=== PATIENT | female | born 1950 | race Caucasian/White ===

== ENCOUNTER → 2016-09-21 | Outpatient (CLI) | payer MEDICARE ==
--- NOTE | 2016-09-22 08:37 | MM ---
Reason for exam: screening (asymptomatic). Last mammogram was performed 1 year and 1 month ago. History: Patient is postmenopausal. Family history of breast cancer in maternal aunt at age 75 and breast cancer in mother at age 75. Took hormonal contraceptives for 2 years. Took estrogen for 9 years beginning at age 45. Physical Findings: A clinical breast exam by your physician is recommended on an annual basis and results should be correlated with mammographic findings. MG 3D Screening Mammo W/Cad Bilateral CC and MLO view(s) were taken. Prior study comparison: August 10, 2015, bilateral MG screening mammo w CAD. June 26, 2014, bilateral MG screening mammo w CAD. March 27, 2013, right diagnostic mammogram w/CAD. There are scattered fibroglandular densities. Finding: There are typically benign vascular, round calcifications in both breasts. There are tiny chronic nodularities bilaterally. There is no discrete abnormality. ASSESSMENT: Benign, BI-RAD 2 RECOMMENDATION: Routine screening mammogram of both breasts in 1 year.
== END | disposition home or self-care (01) ==
LOC: RADMAMWWP 08:17
PROVIDERS: ATTEND Internal Medicine
DX: Z12.31 Encounter for screening mammogram for malignant neoplasm of breast (principal)
CPT/HCPCS: 77063; G0202

== ENCOUNTER → 2016-12-12 | Outpatient (CLI) | payer MEDICARE ==
[2016-12-12 09:16] LABS: CH 30.9; CHCM 35.4; HCT 41.5 % (34.0-46.0); HGB 14.4 gm/dL (11.4-16.0); MCH 30.4 pg (25.0-35.0); MCHC 34.7 g/dL (31.0-37.0); MCV 87.6 fL (80.0-100.0); Mean Platelet Volume 9.5; RBC 4.74 m/uL (3.80-5.40); RDW 12.9 % (11.5-15.5); WBC 5.4 k/uL (3.8-10.6)
[2016-12-12 09:41] LABS: Anion Gap 9 mmol/L; Blood Urea Nitrogen 18 mg/dL (7-17); Carbon Dioxide 28 mmol/L (22-30); Chloride 105 mmol/L (98-107); Non-African American GFR(MDRD) >60 (>60 ml/min/1.73 sqM); Potassium 4.3 mmol/L (3.5-5.1); Sodium 142 mmol/L (137-145)
== END | disposition home or self-care (01) ==
LOC: LABPAT 08:51
PROVIDERS: ATTEND Internal Medicine Interventional Cardiology
DX: Z01.812 Encounter for preprocedural laboratory examination (principal); I25.10 Atherosclerotic heart disease of native coronary artery without angina pectoris
CPT/HCPCS: 80051; 82565; 84520; 85027

== ENCOUNTER → 2016-12-15 | Day surgery (SDC) | payer MEDICARE ==
[2016-12-12 14:53] VITALS: BMI 42.5
[~2016-12-15] MED LIST: ALPRAZolam 0.25 MG TAB PO PRN; ALPRAZolam 0.5 MG TAB PO PRN; ASPIRIN 325 MG TAB PO STA; ATORVASTATIN 80 MG TAB PO STA; IOHEXOL 350 MG/ML 125ML BOTTLE INJ ONE; LIDOCAINE 2% INJ 20 MG/ML (20 ML MDV) ONE; MIDAZOLAM 2 MG/2 ML VIAL ONE; NITROGLYCERIN SL TABS 0.4 MG TAB SUBLINGUAL PRN; RX INFO: IV CONTRAST WAS GIVEN 1 EACH MISC MISCELLANE PRN; SODIUM CHLORIDE 0.9% 1,000 ML IV SCH; SODIUM CHLORIDE 0.9% 1,000 ML in EMPTY BAG 1 BAG IV ONE; VERAPAMIL 2.5 MG/ML 2 ML AMP ONE
[2016-12-15 07:06] VITALS: RESP 18
[2016-12-15] MEDS: MIDAZOLAM 2 MG/2 ML VIAL IV ONE ×2 (07:48→07:55)
[2016-12-15] MEDS: LIDOCAINE 2% INJ 20 MG/ML SQ ONE ×2 (07:50→08:08)
[2016-12-15 08:56] VITALS: TEMP 98.2
[2016-12-15 14:57] VITALS: BP 101/56; PULSE 58
--- NOTE | 2016-12-15 18:29 | CC ---
DATE OF SERVICE: 12/15/2016 PERFORMING PHYSICIAN: Femi Vega M.D., psychological science professor. PROCEDURES PERFORMED: 1. Selective right and left coronary angiogram. 2. Left heart catheterization. 3. Left ventriculography. INDICATION: This is a pleasant 66-year-old female patient who was experiencing chest discomfort consistent with angina. She has multiple risk factors for CAD. The decision was made for heart catheterization in view of the classical nature of her symptoms. APPROACH: Right common femoral artery. COMPLICATIONS: None. Level of sedation was moderate with sedation length of 37 minutes. PROCEDURE DESCRIPTION: After obtaining informed consent, the patient was brought to the cardiac dental laboratory technician apprentice. Initially I tried to engage the right radial artery, but I was unable. Then I decided to pursue an approach from the right groin. Subsequently the right common femoral artery was cannulated using micropuncture technique. The micropuncture wire passed easily. Then I placed a 6 German sheath in the right common femoral artery. After that I did selective right and left coronary angiogram using 6 German, JR4 and JL4 catheters. Then I did left heart catheterization and left ventriculogram using a 6 German pigtail catheter. The procedure was completed without any complication. SELECTIVE CORONARY ANGIOGRAM: 1. The right coronary artery is a large-caliber vessel. It is a dominant vessel. The right coronary artery in the proximal portion appeared to be angiographically normal. In the mid portion right after the bifurcation of the acute marginal branch it has an eccentric lesion that seems to be in the range of 30%. The RCA distally is angiographically normal. It bifurcates into PDA and PLV branches; both are angiographically normal. 2. The left main is angiographically normal. It bifurcates into the left circumflex and left anterior descending artery. 3. The left circumflex is a large-caliber vessel. It is a non-dominant vessel. The proximal left circumflex is angiographically normal and gives rise to a small obtuse marginal branch. The mid left circumflex is normal. The left circumflex distally is normal and gives rise to another obtuse marginal branch before it continues as a small-caliber vessel in the AV groove. The second OM is angiographically normal. 4. LAD. The proximal LAD is angiographically normal. The mid LAD is normal and gives rise to a medium-sized diagonal branch which seems to be angiographically normal. The LAD is tortuous but normal distally. HEMODYNAMICS: The left ventricular end-diastolic pressure was 8 mmHg, and no gradient was identified across the aortic valve. Left ventriculography was performed in the MOCK projection and using a power injection. The left ventricular systolic function is normal with an ejection fraction of 60% and normal wall motion. CONCLUSION: 1. Mild non-obstructive coronary artery disease involving the mid RCA in the range of 30%. 2. Normal left circumflex and left anterior descending artery. 3. Normal left main coronary artery. 4. Normal left ventricular systolic function. POST-PROCEDURE MANAGEMENT: 1. Maximize medical treatment. 2. Follow up with the patient.
--- NOTE | 2016-12-15 18:31 | LTR ---
December 15, 2016 RE: Luis Manuel, Yumiko M Dear Petrona, Ms. Yumiko Issa underwent a heart catheterization that showed mild non-obstructive coronary artery disease involving the right coronary artery. The left anterior descending coronary artery and left circumflex coronary artery are angiographically normal. Maximized medical treatment is recommended at this point with aspirin as well as a statin. I want to thank you for allowing me to participate in her care. Please do not hesitate to call if you have any question or concern. Sincerely, ADRIANA CARL MD
== END ==
LOC: CATHCVL 06:24
PROVIDERS: ATTEND Internal Medicine Interventional Cardiology
DX: I25.10 Atherosclerotic heart disease of native coronary artery without angina pectoris (principal); I10 Essential (primary) hypertension; E78.5 Hyperlipidemia, unspecified; Z82.49 Family history of ischemic heart disease and other diseases of the circulatory system; E66.9 Obesity, unspecified; Z68.41 Body mass index [BMI] 40.0-44.9, adult; Z88.0 Allergy status to penicillin; Z79.82 Long term (current) use of aspirin; Z79.899 Other long term (current) drug therapy
CPT/HCPCS: 93458; 99152; 99153; C1760; C1769 ×3; C1894; J2001; J2250; Q9967

== ENCOUNTER → 2016-12-20 | Outpatient (CLI) | payer MEDICARE | END | disposition home or self-care (01) | LOC: LABWHC1 08:35 | PROVIDERS: ATTEND Internal Medicine Endocrinology, Diabetes & Metabolism | DX: E05.90 Thyrotoxicosis, unspecified without thyrotoxic crisis or storm (principal) | CPT/HCPCS: 36415; 84439; 84443 ==

== ENCOUNTER → 2017-04-03 | Outpatient (CLI) | payer MEDICARE | END | disposition home or self-care (01) | LOC: LABWHC1 10:35 | PROVIDERS: ATTEND Internal Medicine Endocrinology, Diabetes & Metabolism | DX: E05.90 Thyrotoxicosis, unspecified without thyrotoxic crisis or storm (principal) | CPT/HCPCS: 36415; 84439; 84443; 84480 ==

== ENCOUNTER → 2018-01-03 | Outpatient (CLI) | payer MEDICARE ==
[2018-01-03 12:26] LABS: Basophils % (A) 0 %; Eosinophils # (A) 0.3 k/uL (0-0.7); Eosinophils % (A) 8 %; HCT 41.2 % (34.0-46.0); HGB 14.2 gm/dL (11.4-16.0); Lymphocytes # (A) 1.3 k/uL (1.0-4.8); Lymphocytes % (A) 30 %; MCH 29.7 pg (25.0-35.0); MCHC 34.4 g/dL (31.0-37.0); MCV 86.3 fL (80.0-100.0); Mean Platelet Volume 9.1; Monocytes # (A) 0.3 k/uL (0-1.0); Monocytes % (A) 7 %; Neutrophils # (A) 2.3 k/uL (1.3-7.7); Neutrophils % (A) 53 %; Platelet Count 260 k/uL (150-450); RBC 4.77 m/uL (3.80-5.40); RDW 13.4 % (11.5-15.5); WBC 4.4 k/uL (3.8-10.6)
[2018-01-03 12:37] LABS: Albumin 4.2 g/dL (3.5-5.0); Calcium 9.8 mg/dL (8.4-10.2); Potassium 4.5 mmol/L (3.5-5.1); Total Bilirubin 0.7 mg/dL (0.2-1.3)
== END | disposition home or self-care (01) ==
LOC: LABWHC1 11:17
PROVIDERS: ATTEND Nurse Practitioner Primary Care
DX: I10 Essential (primary) hypertension (principal)
CPT/HCPCS: 36415; 80053; 80061; 84443; 85025

== ENCOUNTER → 2018-01-03 | Outpatient (CLI) | payer MEDICARE ==
--- NOTE | 2018-01-11 10:45 | MM ---
Reason for exam: screening (asymptomatic). Last mammogram was performed 1 year and 3 months ago. History: Patient is postmenopausal. Family history of breast cancer in maternal aunt at age 75 and breast cancer in mother at age 75. Took hormonal contraceptives for 2 years. Took estrogen for 9 years beginning at age 45. Physical Findings: A clinical breast exam by your physician is recommended on an annual basis and results should be correlated with mammographic findings. MG 3D Screening Mammo W/Cad Bilateral CC and MLO view(s) were taken. Prior study comparison: September 21, 2016, bilateral MG 3d screening mammo w/cad. August 10, 2015, bilateral MG screening mammo w CAD. There are scattered fibroglandular densities. Benign appearing bilateral calcifications. No suspicious abnormality. No significant changes when compared with prior studies. ASSESSMENT: Benign, BI-RAD 2 RECOMMENDATION: Routine screening mammogram of both breasts in 1 year.
== END | disposition home or self-care (01) ==
LOC: RADMAMWWP 11:49
PROVIDERS: ATTEND Internal Medicine
DX: Z12.31 Encounter for screening mammogram for malignant neoplasm of breast (principal)
CPT/HCPCS: 77063; 77067

== ENCOUNTER → 2018-02-01 | Outpatient (CLI) | payer MEDICARE ==
--- NOTE | 2018-02-01 08:52 | US ---
EXAMINATION TYPE: US thyroid st tissue head/neck DATE OF EXAM: 02/01/2018 COMPARISON: 10/02/2014 CLINICAL HISTORY: E04.2 MULTINODULAR GOITER. GLAND SIZE: Right Lobe: 3.5 x 1.2 x 1.5 cm Overall Parenchyma: heterogenous Left Lobe: 3.5 x 1.2 x 1.4 cm Overall Parenchyma: heterogeneous Isthmus Thickness: 0.2 cm NODULES RIGHT: # of nodules measured on right: 1 1. 0.7 X 0.6 x 0.7 cm hypoechoic solid nodule at the lower pole with well-defined margins; . This nodule is wider than tall and shows intranodular vascularity. Prior size: 0.7 x 0.5 x 0.6 cm LEFT: # of nodules measured on left: 1 1. 0.5 X 0.6 x 0.5 cm hypoechoic mixed nodule at the lower pole with well-defined margins; . This nodule is wider than tall and shows no intranodular vascularity. Prior size: not seen on prior. ISTHMUS: # of nodules measured in the isthmus: 0 Bilateral neck scanned, no evidence of lymphadenopathy. Nodules as described. IMPRESSION: Nonspecific thyroid nodules as noted above.
== END | disposition home or self-care (01) ==
LOC: RADUSWWP 07:32
PROVIDERS: ATTEND Internal Medicine Endocrinology, Diabetes & Metabolism
DX: E04.2 Nontoxic multinodular goiter (principal)
CPT/HCPCS: 36415; 76536; 84443

== ENCOUNTER 2018-03-18 09:02 | Emergency (ER) | payer MEDICARE ==
--- NOTE | 2018-03-18 09:14 | ED ---
Extremity Problem HPI - General Chief complaint: Extremity Problem,Nontraumatic Stated complaint: LEFT LEG PAIN Time Seen by Provider: 03/18/18 09:09 Source: patient, RN notes reviewed Mode of arrival: ambulatory Limitations: no limitations - History of Present Illness Initial comments: 67-year-old female presents emergency Department chief complaint left leg pain. Patient states started last night worse this morning. She denies any trauma or any known injury. She states his pain along the medial aspect of her left calf. She has no history of blood clots. Denies any chest pain or shortness of breath. She states that she's had vein stripping in the past. Patient states that she's never been told that she's had superficial thrombophlebitis. She does have known varicosities. Patient states that she tried wearing her compression stockings but did not help her symptoms. - Related Data Home Medications Medication Instructions Recorded Confirmed Aspirin 81 mg PO DAILY 12/12/16 12/15/16 Atorvastatin [Lipitor] 40 mg PO DAILY 12/12/16 12/15/16 Lisinopril-Hctz 10-12.5 mg 1 tab PO DAILY 12/12/16 12/15/16 [Zestoretic 10-12.5] Loratadine [Claritin] 10 mg PO DAILY 12/12/16 12/15/16 Methimazole [Tapazole] 2.5 mg PO DIRECTED 12/12/16 12/15/16 Metoprolol Tartrate [Lopressor] 12.5 mg PO BID 12/12/16 12/15/16 Ranitidine HCl [Zantac] 75 mg PO HS 12/12/16 12/15/16 Candelaria's Wort 600 mg PO DAILY 12/12/16 12/15/16 Previous Rx's Medication Instructions Recorded Ibuprofen [Motrin] 600 mg PO Q8HR PRN #30 tab 03/18/18 Allergies Allergy/AdvReac Type Severity Reaction Status Date / Time Penicillins Allergy Rash/Hives Verified 03/18/18 09:07 Review of Systems ROS Statement: Those systems with pertinent positive or pertinent negative responses have been documented in the HPI. ROS Other: All systems not noted in ROS Statement are negative. Past Medical History Past Medical History: Hypertension History of Any Multi-Drug Resistant Organisms: None Reported Additional Past Surgical History / Comment(s): vein stripping Past Psychological History: No Psychological Hx Reported Smoking Status: Never smoker Past Alcohol Use History: None Reported Past Drug Use History: None Reported General Exam Limitations: no limitations General appearance: alert, in no apparent distress Respiratory exam: Present: normal lung sounds bilaterally. Absent: respiratory distress, wheezes, rales, rhonchi, stridor Cardiovascular Exam: Present: regular rate, normal rhythm, normal heart sounds. Absent: systolic murmur, diastolic murmur, rubs, gallop, clicks Extremities exam: Present: other (Mild left medial calf tenderness, there are some varicose veins noted pulses of lower extremity equal bilaterally equal warmth in color. There is an area which is superficial mild erythema with tenderness) Course Vital Signs 03/18/18 09:05 Temperature 98.1 F Pulse Rate 90 Respiratory 20 Rate Blood Pressure 138/76 O2 Sat by Pulse 100 Oximetry Medical Decision Making - Medical Decision Making 67-year-old female presents emergency department for low left leg pain. She did have an ultrasound which was negative for acute DVT is positive for superficial, phlebitis. She'll continue wearing her compression stockings, warm compresses and take ibuprofen. Disposition Clinical Impression: Superficial thrombophlebitis Disposition: HOME SELF-CARE Condition: Stable Instructions: Superficial Thrombophlebitis (ED) Additional Instructions: Please return to the Emergency Department if symptoms worsen or any other concerns. Prescriptions: Ibuprofen [Motrin] 600 mg PO Q8HR PRN #30 tab PRN Reason: Pain Is patient prescribed a controlled substance at d/c from ED?: No Referrals: Hany Barboza MD [Primary Care Provider] - 1-2 days Time of Disposition: 10:16
--- NOTE | 2018-03-18 09:57 | US ---
EXAMINATION TYPE: US venous doppler duplex LE LT DATE OF EXAM: 03/18/2018 9:47 AM COMPARISON: NONE CLINICAL HISTORY: Pain. Pain left upper calf since last night. History of varicose veins SIDE PERFORMED: Left TECHNIQUE: The lower extremity deep venous system is examined utilizing real time linear array sonog lucie with graded compression, doppler sonography and color-flow sonography. VESSELS IMAGED: External Iliac Vein (EIV) Common Femoral Vein Deep Femoral Vein Greater Saphenous Vein * Femoral Vein Popliteal Vein Small Saphenous Vein * Proximal Calf Veins (* superficial vessels) Left Leg: No evidence of DVT. Thrombus noted within superficial vein left popliteal fossa/left upper calf No popliteal fossa cyst is seen. IMPRESSION: 1. THIS EXAMINATION IS NEGATIVE FOR DVT WITHIN THE LEFT LEG. 2. THERE IS EVIDENCE OF SUPERFICIAL THROMBOSIS IN THE POPLITEAL FOSSA.
[2018-03-18 10:36] VITALS: BP 133/68; PULSE 88; RESP 18; TEMP 97.7
== END 2018-03-18 10:35 | disposition home or self-care (01) ==
LOC: EC 09:02
DX: I80.02 Phlebitis and thrombophlebitis of superficial vessels of left lower extremity (principal); I10 Essential (primary) hypertension; Z88.0 Allergy status to penicillin; Z79.82 Long term (current) use of aspirin; Z79.899 Other long term (current) drug therapy; Z98.890 Other specified postprocedural states
CPT/HCPCS: 99283

== ENCOUNTER → 2018-11-22 | Outpatient (CLI) | payer MEDICARE ==
--- NOTE | 2018-11-22 10:52 | US ---
EXAMINATION TYPE: US venous doppler duplex LE RT DATE OF EXAM: 11/22/2018 10:43 AM COMPARISON: NONE CLINICAL HISTORY: I80.9 Phlebitis and thrombophlebitis of unspecifie. SIDE PERFORMED: right TECHNIQUE: The lower extremity deep venous system is examined utilizing real time linear array sonog lucie with graded compression, doppler sonography and color-flow sonography. VESSELS IMAGED: External Iliac Vein (EIV) Common Femoral Vein Deep Femoral Vein Greater Saphenous Vein * Femoral Vein Popliteal Vein Small Saphenous Vein * Proximal Calf Veins (* superficial vessels) Right Leg: Negative for DVT possible bakers cyst rt posterior knee 4.7 x 1.4 x 1.6 cm IMPRESSION: 1. No diagnostic evidence of DVT 2. Popliteal fossa cyst measuring 4.7 cm could be correlated with MRI.
== END | disposition home or self-care (01) ==
LOC: RADUSWWP 10:14
PROVIDERS: ATTEND Orthopaedic Surgery
DX: M71.21 Synovial cyst of popliteal space [Baker], right knee (principal); I80.9 Phlebitis and thrombophlebitis of unspecified site; Z96.651 Presence of right artificial knee joint

== ENCOUNTER → 2019-02-05 | Outpatient (CLI) | payer MEDICARE ==
[2019-02-05 09:32] LABS: T4, Free (Free Thyroxine) 0.88 ng/dL (0.78-2.19)
--- NOTE | 2019-02-05 12:59 | US ---
EXAMINATION TYPE: US thyroid st tissue head/neck DATE OF EXAM: 02/05/2019 COMPARISON: 02/01/2018 CLINICAL HISTORY: E04.2 NONTOXIC MULTINODULAR GOITER. GLAND SIZE: Right Lobe: 4.2 x 1.6 x 1.7 cm Overall Parenchyma: heterogenous Left Lobe: 4.0 x 1.4 x 1.5 cm Overall Parenchyma: heterogeneous Isthmus Thickness: 0.2 cm NODULES RIGHT: # of nodules measured on right: 1 1. 0.7 X 0.7 x 0.6 cm hypoechoic solid nodule at the lower pole with well-defined margins. This no dule is wider than tall and shows intranodular vascularity. Prior size: 0.7 x 0.6 x 0.7 cm LEFT: # of nodules measured on left: 1 1. 0.6 X 0.6 x 0.6 cm anechoic cystic nodule at the lower pole with well-defined margins. This nod ule is taller than wide and shows no intranodular vascularity. Prior size: 0.5 x 0.6 x 0.5 cm ISTHMUS: # of nodules measured in the isthmus: 0 Bilateral neck canned, no evidence of lymphadenopathy. IMPRESSION: Similar size of the bilateral subcentimeter thyroid nodules. These are likely benign.
== END | disposition home or self-care (01) ==
LOC: RADUSWWP 08:31
PROVIDERS: ATTEND Internal Medicine Endocrinology, Diabetes & Metabolism
DX: E04.2 Nontoxic multinodular goiter (principal)
CPT/HCPCS: 76536; 84439; 84443

== ENCOUNTER → 2019-02-19 | Outpatient (CLI) | payer MEDICARE ==
--- NOTE | 2019-02-20 14:09 | MM ---
Reason for exam: screening (asymptomatic). Last mammogram was performed 1 year and 2 months ago. History: Patient is postmenopausal. Family history of breast cancer in maternal aunt at age 75 and breast cancer in mother at age 75. Took hormonal contraceptives for 2 years. Took estrogen for 9 years beginning at age 45. Physical Findings: A clinical breast exam by your physician is recommended on an annual basis and results should be correlated with mammographic findings. MG 3D Screening Mammo W/Cad Bilateral CC and MLO view(s) were taken. Prior study comparison: January 03, 2018, bilateral MG 3d screening mammo w/cad. September 21, 2016, bilateral MG 3d screening mammo w/cad. There are scattered fibroglandular densities. Benign appearing bilateral calcifications. No suspicious abnormality. No significant changes when compared with prior studies. ASSESSMENT: Benign, BI-RAD 2 RECOMMENDATION: Routine screening mammogram of both breasts in 1 year.
== END | disposition home or self-care (01) ==
LOC: RADMAMWWP 08:12
PROVIDERS: ATTEND Internal Medicine
DX: Z12.31 Encounter for screening mammogram for malignant neoplasm of breast (principal)
CPT/HCPCS: 77063; 77067

== ENCOUNTER → 2020-02-11 | Outpatient (CLI) | payer MEDICARE ==
--- NOTE | 2020-02-11 15:47 | US ---
EXAMINATION TYPE: US thyroid st tissue head/neck DATE OF EXAM: 02/11/2020 COMPARISON: US 02/05/2019 CLINICAL HISTORY: E04.2 MULTINODULAR GOITER. GLAND SIZE: Right Lobe: 3.4 x 1.7 x 1.7 cm Overall Parenchyma: heterogenous Left Lobe: 3.5 x 1.4 x 1.4 cm Overall Parenchyma: heterogeneous Isthmus Thickness: 0.3 cm NODULES RIGHT: # of nodules measured on right: 1 1. 0.9 X 0.7 x 0.7 cm hypoechoic solid nodule at the lower pole with well-defined margins; . This nodule is wider than tall and shows intranodular vascularity. Prior size: 0.7 x 0.7 x 0.6 cm LEFT: # of nodules measured on left: 1 1. 0.9 X 0.6 x 0.6 cm hypoechoic solid nodule at the lower pole with well-defined margins; . This nodule is wider than tall and shows intranodular vascularity. Prior size: 0.6 x 0.6 x 0.6 cm ISTHMUS: # of nodules measured in the isthmus: 0 Bilateral neck scanned, no evidence of lymphadenopathy. IMPRESSION: Bilateral nonspecific thyroid nodularity remain stable.
== END | disposition home or self-care (01) ==
LOC: RADUSWWP 14:50
PROVIDERS: ATTEND Internal Medicine Endocrinology, Diabetes & Metabolism
DX: E04.2 Nontoxic multinodular goiter (principal)
CPT/HCPCS: 76536

== ENCOUNTER 2020-03-11 07:57 | Day surgery (SDC) | payer MEDICARE ==
[2020-03-09 08:56] VITALS: BMI 42.3
[~2020-03-11 07:57] MED LIST changes: -ALPRAZolam 0.25 MG TAB PO PRN; -ALPRAZolam 0.5 MG TAB PO PRN; -ASPIRIN 325 MG TAB PO STA; -ATORVASTATIN 80 MG TAB PO STA; -IOHEXOL 350 MG/ML 125ML BOTTLE INJ ONE; +LACTATED RINGERS 1,000 ML IV SCH; -LIDOCAINE 2% INJ 20 MG/ML (20 ML MDV) ONE; -MIDAZOLAM 2 MG/2 ML VIAL ONE; -NITROGLYCERIN SL TABS 0.4 MG TAB SUBLINGUAL PRN; -RX INFO: IV CONTRAST WAS GIVEN 1 EACH MISC MISCELLANE PRN; -SODIUM CHLORIDE 0.9% 1,000 ML IV SCH; -SODIUM CHLORIDE 0.9% 1,000 ML in EMPTY BAG 1 BAG IV ONE; -VERAPAMIL 2.5 MG/ML 2 ML AMP ONE
[2020-03-11 08:54] VITALS: TEMP 97.6
[2020-03-11] MEDS ORDERED: LIDOCAINE 1% (10MG/ML) FOR IV START INTRADERMA ONE (08:54)
[2020-03-11] MEDS ORDERED: PROPOFOL 10 MG/ML 20 ML VIAL IV ONE (09:33)
--- NOTE | 2020-03-11 09:48 | P.PCN ---
Date of Procedure: 03/11/20 Procedure(s) Performed: BRIEF HISTORY: Patient is a 69-year-old pleasant white female scheduled for an elective colonoscopy as a part of screening for colorectal neoplasia. She does have family history of colon cancer and hence no more at age 74. PROCEDURE PERFORMED: Colonoscopy. PREOPERATIVE DIAGNOSIS: Screening for colon cancer/family history of colon cancer. IV sedation per Anesthesia. PROCEDURE: After informed consent was obtained, the patient, was brought into the endoscopy unit. IV sedation was administered by Anesthesia under continuous monitoring. Digital rectal examination was normal. Initially the Olympus CF-160 flexible video colonoscope was then inserted in the rectum, gradually advanced into the cecum without any difficulty. Careful examination was performed as the scope was gradually being withdrawn. Ileocecal valve and the appendiceal orifice were visualized and appeared normal. Prep was excellent. Mucosa of the cecum, ascending colon, transverse colon, descending colon, sigmoid colon, and rectum appeared normal. Scattered sigmoid diverticulosis seen. Retroflexion was performed in the rectum and no lesions were seen. The patient tolerated the procedure well. IMPRESSION: Normal-appearing colon from rectum to cecum with no evidence of colorectal neoplasia . Scattered sigmoid diverticulosis. RECOMMENDATIONS: Findings of this examination were discussed with the patient as well as her family. She was advised to have a repeat screening colonoscopy in 5 years from now because of family history of colon cancer.
[2020-03-11 10:12] VITALS: BP 122/78; PULSE 70; RESP 18
== END 2020-03-11 10:28 | disposition home or self-care (01) ==
LOC: ORWHC2ENDO 07:57
PROVIDERS: ATTEND Internal Medicine Gastroenterology
DX: Z12.11 Encounter for screening for malignant neoplasm of colon (principal); K57.30 Diverticulosis of large intestine without perforation or abscess without bleeding; Z80.0 Family history of malignant neoplasm of digestive organs; I10 Essential (primary) hypertension; E78.5 Hyperlipidemia, unspecified; K21.9 Gastro-esophageal reflux disease without esophagitis; Z88.0 Allergy status to penicillin; Z79.82 Long term (current) use of aspirin; Z79.899 Other long term (current) drug therapy; Z90.49 Acquired absence of other specified parts of digestive tract; Z90.710 Acquired absence of both cervix and uterus; Z96.653 Presence of artificial knee joint, bilateral; Z98.890 Other specified postprocedural states
CPT/HCPCS: 45378; J2704

== ENCOUNTER → 2020-03-26 | Outpatient (CLI) | payer MEDICARE ==
--- NOTE | 2020-03-30 09:12 | MM ---
Reason for exam: screening (asymptomatic). Last mammogram was performed 1 year and 1 month ago. History: Patient is postmenopausal and history of other cancer. Family history of breast cancer in maternal aunt at age 75 and breast cancer in mother at age 75. Took hormonal contraceptives for 2 years. Took estrogen for 9 years beginning at age 45. Physical Findings: A clinical breast exam by your physician is recommended on an annual basis and results should be correlated with mammographic findings. MG 3D Screening Mammo W/Cad Bilateral CC and MLO view(s) were taken. Prior study comparison: February 19, 2019, bilateral MG 3d screening mammo w/cad. January 03, 2018, bilateral MG 3d screening mammo w/cad. The breast tissue is almost entirely fat. ASSESSMENT: Benign, BI-RAD 2 RECOMMENDATION: Routine screening mammogram of both breasts in 1 year.
== END | disposition home or self-care (01) ==
LOC: RADMAMWWP 08:50
PROVIDERS: ATTEND Internal Medicine
DX: Z12.31 Encounter for screening mammogram for malignant neoplasm of breast (principal)
CPT/HCPCS: 77063; 77067

== ENCOUNTER → 2020-09-23 | Outpatient (CLI) | payer MEDICARE ==
[2020-09-23 11:23] LABS: T4, Free (Free Thyroxine) 0.8 ng/dL (0.80-1.80)
== END | disposition home or self-care (01) ==
LOC: LABWHC1 07:17
PROVIDERS: ATTEND Internal Medicine Endocrinology, Diabetes & Metabolism
DX: E04.2 Nontoxic multinodular goiter (principal)
CPT/HCPCS: 36415; 84439; 84443

== ENCOUNTER → 2021-11-17 | Outpatient (CLI) | payer MEDICARE ==
[2021-11-17 23:14] LABS: T4, Free (Free Thyroxine) 1.07 ng/dL (0.800-1.800)
--- NOTE | 2021-11-18 09:11 | US ---
EXAMINATION TYPE: US thyroid st tissue head/neck DATE OF EXAM: 11/17/2021 COMPARISON: Ultrasound 02/11/20, 02/05/19 CLINICAL HISTORY: 71-year-old female E04.2 Nontoxic multinodular goiter. TECHNIQUE: Multiple sonographic images of the thyroid gland are obtained. FINDINGS: GLAND SIZE: Right Lobe: 3.3 x 1.3 x 1.3 cm Overall Parenchyma: homogenous Left Lobe: 3.8 x 1.4 x 1.1 cm Overall Parenchyma: homogeneous Isthmus Thickness: 0.3 cm NODULES RIGHT: # of nodules measured on right: 1 1. 0.9 X 0.7 x 0.7 cm, lower mid, solid or almost completely solid, isoechoic TR 3 nodule, which is , with smooth margins, without echogenic foci. Prior size: 0.9 X 0.7 x 0.7 cm LEFT: # of nodules measured on left: 2 1. 0.8 X 0.7 x 0.6 cm, lower mid, solid or almost completely solid, hypoechoic TR 4 nodule, which i s wider than tall, with ill-defined margins, without echogenic foci. Prior size: 0.9 X 0.6 x 0.6 cm 2. 0.4 X 0.4 x 0.4 cm, mid mid, solid or almost completely solid, TR 4 hypoechoic nodule, which is wider than tall, with smooth margins, without echogenic foci. Prior size: Not seen previously ISTHMUS: # of nodules measured in the isthmus: 0 Bilateral neck scanned, no evidence of lymphadenopathy. IMPRESSION: 1. A couple solid nodules measuring up to 9 mm in each lobe remain unchanged. 2. A 4 mm TR4 nodule on the left is new. Additional follow-up can be performed.
== END | disposition home or self-care (01) ==
LOC: RADUSWWP 15:35
PROVIDERS: ATTEND Internal Medicine Endocrinology, Diabetes & Metabolism
DX: E04.2 Nontoxic multinodular goiter (principal); E05.90 Thyrotoxicosis, unspecified without thyrotoxic crisis or storm
CPT/HCPCS: 76536; 84439; 84443